=== PATIENT | female | born 2005 | race African-American/Black ===

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

== ENCOUNTER 2025-02-13 20:11 | Emergency (ER) | payer OTHER, SELFPAY ==
[2025-02-13 20:15] VITALS: BP 134/82; BP 161/107; PULSE 127; PULSE 136; RESP 19; TEMP 36.6; O2SAT 100; O2SAT 98; BMI 31.9
--- NOTE | 2025-02-13 20:45 | ED_ITS ---
HPI - General Adult General Chief complaint: General Medical Stated complaint: Possible drug interaction Time Seen by Provider: 02/13/25 20:45 Source: patient Mode of arrival: EMS Limitations: no limitations History of Present Illness ED Provider: HPI narrative: Patient's history of anxiety, bipolar took doxycycline for the 1st time for hydradenitis suppurativa and started feeling shaky feels that medication causing the side effect during stay in the ER patient felt better able to answer questions throughout no seizure activity noticed Related Data Previous Rx's ?Medication ?Instructions ?Recorded bupropion HCl 300 mg 24 hr tablet, 300 mg PO DAILY 30 days #30 tabs 09/29/23 extended release hydroxyzine HCl 10 mg tablet 10 mg PO BID 30 days #60 tabs 09/29/23 lamotrigine 200 mg tablet 200 mg PO DAILY 30 days #30 tabs 09/29/23 quetiapine 150 mg tablet 150 mg PO BEDTIME PRN insomnia 30 09/29/23 days #30 tabs cefuroxime axetil 250 mg tablet 250 mg PO BID 7 days #14 tabs 12/01/24 ondansetron 4 mg disintegrating 4 mg PO Q8H PRN nausea and 12/01/24 tablet vomiting #10 tabs Allergies Allergy/AdvReac Type Severity Reaction Status Date / Time Pork/Porcine Containing AdvReac Stomach Verified 02/13/25 20:18 Products Upset Review of Systems Review of Systems: Yes all other systems are reviewed and are negative [facility] Past Medical History Medical History Planning to commit suicide Suicidal ideation PTSD (post-traumatic stress disorder) Social History Social History Household Members: None Housing: Other Housing Other:: Dorm Do you presently have visiting nurse or other home services: No Alcohol intake: never Patient Tobacco Use Status: Never used Tobacco Advance Directives: No Advance Directives Information Provided: No Do you have a plan to hurt others: No Plan service: No Sexual orientation: Decline to Answer Physical Exam ED Vital Signs: Vital Signs - 24 hr 02/13/25 20:15 02/13/25 21:28 Temperature 97.9 F 98.8 F Pulse Rate 136 H 108 H Respiratory Rate 19 16 Blood Pressure 161/107 H 131/89 Pulse Oximetry 100 96 Oxygen Delivery Method Room Air Room Air BMI result Body Mass Index 31.9 Appearance: Alert. Oriented X3. No acute distress. Eyes: No pallor or icterus ENT: Pharynx normal. Oral Mucosa moist Neck: Normal inspection. Neck supple. CVS: Normal heart rate and rhythm. Pulses normal. Respiratory: No respiratory distress. Equal air entry bilateral, no wheezing/rales/rhonchi Abdomen: Soft and nontender. Bowel sounds are present, no mass palpable, no CVA tenderness Skin: Skin warm and dry. Normal skin color. Normal skin turgor. Extremities: No lower extremity edema. No calf tenderness Neuro: Oriented X 3. No motor deficit. No sensory deficit.No cerebellar signs , cranial nerves II-XII intact Medical Decision Making Medical Decision Making MDM Narrative: Patient's history of bipolar PTSD anxiety disorder feels that is doxycycline causing the anxiety and pseudo seizures like activity during stay in the ER patient got up from the bed and felt normal no seizure activity noticed no postictal confusion patient likely has a anxiety will discharge patient home advised to follow with PCP Discharge Plan Discharge Clinical Impression: Acute anxiety Patient Disposition: Home, Self-Care Instructions: Anxiety (ED) Additional Instructions: Your symptoms unlikely from the side effect of the medication Follow up with your PCP and continue medication Prescriptions: No Action cefuroxime axetil 250 mg tablet 250 mg PO BID 7 Days Qty: 14 0RF ondansetron 4 mg tablet,disintegrating 4 mg PO Q8H PRN (Reason: nausea and vomiting) Qty: 10 0RF lamotrigine 200 mg tablet 200 mg PO DAILY 30 Days Qty: 30 0RF quetiapine 150 mg tablet 150 mg PO BEDTIME PRN (Reason: insomnia) 30 Days Qty: 30 0RF bupropion HCl 300 mg Tablet Extended Release 24 Hr 300 mg PO DAILY 30 Days Qty: 30 0RF hydroxyzine HCl 10 mg Tablet 10 mg PO BID 30 Days Qty: 60 0RF Discharge Date/Time: 02/13/25 21:35 Print Language: Singaporean
--- OUTSIDE RECORDS SUMMARY | 2025-02-13 21:00 | XMS_ITS | Encounter Summary ---
Author Organization [facility] Address [address] [place] [address] Care Team Providers Care Padded Products Inspector Trimmer Name Role Phone Phyllis Issa DO Primary Care Provider [phone] Reason for Visit * Reason Onset Date Comments PAC Referral Request 05/21/2023 Encounter Details Date Type Department Care Team (Late st Contact Info) Description 05/21/2023 Telephone [facility] [address] [place] [id number] Telephone Intake, Staff PAC Referral Request Social [...] eye Dr Pt can be reached at [phone] documented in this encounter Plan of Treatment Upcoming Encounters Date Type Department Care Team (Late st Contact Info) Description 02/28/2025 1:30 PM EDT Follow-Up [facility] [address] [place] [address] Disaster Recovery Manager: Phyllis Gates DO [address] [place] [address] documented as of this encounter Visit Diagnoses Not on filedocumented in this encounter Care Teams Padded Products Inspector Trimmer Relationship Specialty Start Date End Date Phyllis Issa DO PCP - General Pediatrics 11/04/23 documented as of this encounter
--- OUTSIDE RECORDS SUMMARY | 2025-02-13 21:00 | XMS_ITS | Encounter Summary ---
Author Organization [facility] Address [address] [place] [address] Care Team Providers Care Sr. Pricing Analyst Name Role Phone Phyllis Issa DO Primary Care Provider [phone] Reason for Visit * Reason Onset Date Comments PAC Referral Request 05/28/2023 Encounter Details Date Type Department Care Team (Late st Contact Info) Description 05/28/2023 Telephone [facility] Patient Access [facility] [address] [place] [id number] Telephone Intake, Staff PAC Referral Request Social [...] EDT Patient needs to be referred to [facility] for the first time. Are we able to send a referral to this clinic? Md; NPI; Phone; Fax; Reason for the visit; Appt; Pt would like for Dr. Mobley to recommend a Ophthalmology provider. documented in this encounter Plan of Treatment Upcoming Encounters Date Type Department Care Team (Late st Contact Info) Description 02/28/2025 1:30 PM EDT Follow-Up [facility] Adoles[facility] [address] [place] [id number] Operations Executive: Phyllis Gates DO [address] [place] [id number] documented as of this encounter Visit Diagnoses Not on filedocumented in this encounter Care Teams Sr. Pricing Analyst Relationship Specialty Start Date End Date Phyllis Issa DO PCP - General Pediatrics 11/04/23 documented as of this encounter
--- OUTSIDE RECORDS SUMMARY | 2025-02-13 21:00 | XMS_ITS | Referral Summary ---
Author Organization [facility] Address [address] [place] [address] Care Team Providers Care Rubber Goods Tester Water Name Role Phone Phyllis Issa DO Primary Care Provider [phone] Encounters * This document contains information received from the source organization and may not represent a complete record from that organization. Date Type Department Care Team Description 01/17/[address] [facility] Adolescent [address] [place] [address] Metallurgical Or Materials Technician: Phyllis Gates DO PAC Appt Request - Established from Last 3 Months Allergies Active Allergy Reactions Criticality Noted Date Comments Ascorbic Acid Anaphylaxis High Medications * This document contains information received from the source organization and may not represent a complete record from that organization. etonogestreL (Nexplanon) 68 mg implant 68 mg by subdermal route once. Placed 02/29/24 at [facility] Active ferrous sulfate 325 mg (65 mg iron) tablet Take 1 tablet (325 mg total) by mouth daily with breakfast. 90 tablet 03/17/20 24 Active cholecalcifero l (VITAMIN D3) 2,000 unit capsule Take 1 capsule (2,000 Units total) by mouth once a day. 90 capsule 03/17/20 24 Active chlorhexidine (HIBICLENS) 4% external liquid Apply topically to the affected area daily as needed for wound care for up to 90 days. 236 mL 2 05/05/20 24 Active clindamycin (CLEOCIN T) 1 % gel Apply topically to the affected area 2 times a day for 14 days. 60 g 2 05/05/20 24 Active hydrOXYzine HCL (ATARAX) 10 mg tablet Take 1 tablet (10 mg total) by mouth 3 times a day as needed for anxiety. 90 tablet 3 05/27/20 24 Active norethindrone (AYGESTIN) 5 mg tablet TAKE 1 TABLET BY MOUTH TWICE A DAY 180 tablet 07/11/20 24 Active QUEtiapine (SEROquel) 300 mg tablet Take 1 tablet (300 mg total) by mouth nightly. 30 tablet 2 12/07/19 25 Active metFORMIN (GLUCOPHAGE) 500 mg tablet Take 1 tablet (500 mg total) by mouth every night. 30 tablet 2 01/05/20 25 025 Active QUEtiapine (SEROquel) 100 mg tablet Take 1 tablet (100 mg total) by mouth nightly. Take with 300 mg Seroquel tablet for a total of 400 mg nightly. 30 tablet 1 02/11/20 25 Active lamoTRIgine (LaMICtal) 100 mg tablet Take 3 tablets (300 mg total) by mouth once a day. 90 tablet 1 02/11/20 25 Active QUEtiapine (SEROquel) 300 mg tablet Take 1 tablet (300 mg total) by mouth nightly. Take with 100 mg tablet for a total of 400 mg nightly. 30 tablet 1 02/11/20 25 Active lamoTRIgine (LaMICtal) 25 mg tablet Take 1 tablet (25 mg total) by mouth once a day for 7 days, THEN 1 tablet (25 mg total) 2 (two) times a day for 7 days, THEN 3 tablets (75 mg total) once a day for 7 days. 42 tablet 10/10/20 24 025 Discontinued Active Problems Problem Noted Date Diagnosed Date [...] with psychiatry in the past. Per notes, Adams has been encouraged to keep symptom diary to monitor changes [id number] (specifically looking at jorge/hypomania). Encouraged him to [...] cholesterol, HDL, HgbA1c, TSH which were reassuring. Adams expressed comfort with continuing to monitor and [...] 5 mg BID - Discussed with Dr. Vasquez - Continue to monitor and if not [...] suicide attempt and subsequent psychiatric hospitalization at [facility] for 1.5 weeks. Discharged on 09/30. Living [...] Administration Dates Next Due Covid-19, Pfizer, mRNA, Reeves valent, PF, 30 mcg/0.3 mL dose, rosy-sucrose [...] Pertussis Vaccine, Adsorbed 02/13/2017 Tuberculin Skin Test; Purifi ed Protein Derivative Solution, Intradermal 03/29/2012 Varicella Virus Vaccine 03/20/2010,11/13/2006 Social History Tobacco Use Types Packs/Day Years Used Date Smoking Tobacco: Never Assessed [facility] Utilities Answer Date Recorded In the past 12 months has e electric, gas, oil, or water company threatened to shut off services in your [...] 06/14/2024 2:14 PM EDT Plan of Treatment Upcoming Encounters Date Type Department Care Team (Late st Contact Info) Description 02/28/2025 1:30 PM EDT Follow-Up [facility] Pediatric [facility] Adolescent [address] [place] [phone] Metallurgical Or Materials Technician: Phyllis Gates DO [address] [place] [phone] Insurance [place] [facility] MEDICAID Care Teams Rubber Goods Tester Water Relationship Specialty Start Date End Date Phyllis Issa DO PCP - General Pediatrics 11/04/23
[2025-02-13 21:28] VITALS: BP 131/89; PULSE 108; RESP 16; TEMP 37.1; O2SAT 96
== END 2025-02-13 21:35 | disposition home or self-care (01) ==
PROVIDERS: Emergency Provider Internal Medicine
DX: F41.9 Anxiety disorder, unspecified (principal); L73.2 Hidradenitis suppurativa; Z79.899 Other long term (current) drug therapy
CPT/HCPCS: 99282